=== PATIENT | female | born 1995 | race Caucasian/White ===

== ENCOUNTER 2021-01-24 17:01 | Emergency (ER) | payer OTHER ==
[2021-01-24 17:20] VITALS: BP 135/80; PULSE 73; TEMP 98.3; BMI 32.5
[2021-01-24] MEDS ORDERED: METHOCARBAMOL 500 MG TABLET PO ONE (17:49)
[2021-01-24] MEDS ORDERED: KETOROLAC TROMETHAMINE 60 MG/2 ML VIAL IM ONE (17:49)
[2021-01-24] MEDS ORDERED: LIDOCAINE 5% TOPICAL PATCH TP ONE (17:49)
[2021-01-24] MEDS ORDERED: LIDOCAINE 5% TOPICAL PATCH ONE (18:01)
[2021-01-24] MEDS ORDERED: KETOROLAC TROMETHAMINE 30 MG/1 ML VIAL ONE (18:02)
[2021-01-24] MEDS ORDERED: METHOCARBAMOL 500 MG TABLET ONE (18:02)
[2021-01-24 18:16] LABS: EPI CELLS 9 /uL (0-25.1); HYALINE CASTS 0 /uL (0-3.1); PH,URINE 7.5 (5.0-8.0); URINE APPEARANCE CLEAR; URINE BACTERIA 199 /uL (0-1359); URINE BILIRUBIN NEGATIVE (NEGATIVE); URINE COLOR YELLOW; URINE GLUCOSE (UA) NEGATIVE (NEGATIVE); URINE KETONE NEGATIVE (NEGATIVE); URINE LEUK ESTERASE TRACE (NEGATIVE); URINE NITRITE NEGATIVE (NEGATIVE); URINE PROTEIN NEGATIVE (NEGATIVE); URINE RBC 235 /uL (0-23.9); URINE UROBILINOGEN 0.2 mg/dL (0.2-1.0); URINE WBC 13 /uL (0-25.8)
[2021-01-24 18:18] LABS: HCG,QUALITATIVE URINE Negative
== END 2021-01-24 19:02 | disposition home or self-care (01) ==
LOC: JERFT 17:01
PROC: 3E0233Z Introduction of Anti-inflammatory into Muscle, Percutaneous Approach (ICD-10-PCS; principal; 2021-01-24)
DX: M54.5 Low back pain (principal)
CPT/HCPCS: 72100-TC-FY; 81003; 84703; 87086; 87186; 99284-25

== ENCOUNTER 2021-03-01 18:06 | Emergency (ER) | payer OTHER ==
[2021-03-01 18:17] VITALS: BP 111/52; PULSE 71; TEMP 98; BMI 33.2
[2021-03-01] MEDS ORDERED: DEXAMETHASONE LIQUID 0.5 MG/5 ML PO ONE (18:48)
[2021-03-01] MEDS ORDERED: DEXAMETHASONE SOD PHOSPHATE 10 MG/1 ML VIAL ONE (18:59)
== END 2021-03-01 20:07 | disposition home or self-care (01) ==
LOC: JERFT 18:06
DX: K22.6 Gastro-esophageal laceration-hemorrhage syndrome (principal); J02.9 Acute pharyngitis, unspecified
CPT/HCPCS: 70360-TC-FY; 87880; 99284-25

== ENCOUNTER 2022-06-17 19:32 | Emergency (ER) | payer OTHER ==
[2022-06-17 19:59] VITALS: BP 114/73; PULSE 78; RESP 20; TEMP 98.3; BMI 33.0
[2022-06-17] MEDS ORDERED: ACETAMINOPHEN 325 MG TABLET (FP) PO ONE (20:24)
[2022-06-17] MEDS ORDERED: DIPHTH,PERTUSS(ACELL),TET 0.5 ML DISP.SYRIN IM ONE ×2 (20:24→20:25)
[2022-06-17] MEDS ORDERED: IBUPROFEN 600 MG TABLET (FP) PO ONE ×2 (20:24→20:25)
[2022-06-17] MEDS ORDERED: ACETAMINOPHEN 500 MG TABLET (FP) ONE (20:25)
[2022-06-17] MEDS ORDERED: ACETAMINOPHEN 500 MG TABLET (FP) PO ONE (20:33)
== END 2022-06-17 21:13 | disposition home or self-care (01) ==
LOC: JERFT 19:32
PROC: 3E0234Z Introduction of Serum, Toxoid and Vaccine into Muscle, Percutaneous Approach (ICD-10-PCS; principal; 2022-06-17)
DX: S61.209A Unspecified open wound of unspecified finger without damage to nail, initial encounter (principal); W27.4XXA Contact with kitchen utensil, initial encounter
CPT/HCPCS: 90471; 90715; 99284-25

== ENCOUNTER 2023-03-06 08:35 | Emergency (ER) | payer OTHER ==
[2023-03-06 08:44] VITALS: BP 108/62; PULSE 75; RESP 20; TEMP 98.7; BMI 32.1
[2023-03-06] MEDS ORDERED: ACETAMINOPHEN 500 MG TABLET (FP) PO ONE (09:19)
[2023-03-06] MEDS ORDERED: KETOROLAC TROMETHAMINE 30 MG/1 ML VIAL IM ONE (09:19)
[2023-03-06] MEDS ORDERED: KETOROLAC TROMETHAMINE 15 MG/ML VIAL ONE (09:32)
[2023-03-06] MEDS ORDERED: ACETAMINOPHEN 500 MG TABLET (FP) ONE (09:32)
[2023-03-06] MEDS ORDERED: KETOROLAC TROMETHAMINE 30 MG/1 ML VIAL ONE (09:35)
== END 2023-03-06 09:46 | disposition home or self-care (01) ==
LOC: JERFT 08:35 → JER 08:35 → JERFT 09:46
PROC: 3E0233Z Introduction of Anti-inflammatory into Muscle, Percutaneous Approach (ICD-10-PCS; principal; 2023-03-06)
DX: K08.89 Other specified disorders of teeth and supporting structures (principal); K00.6 Disturbances in tooth eruption
CPT/HCPCS: 84703; 99284-25